=== PATIENT | female | born 1965 | race Caucasian/White ===

== ENCOUNTER 2016-10-01 08:54 | Day surgery (SDC) | payer OTHER ==
[~2016-10-01] VITALS: Ht 165.1 cm; Wt 77.3 kg
[~2016-10-01 08:54] MED LIST: AUGM500T7 PO; DILA2TAB2 PO; DILA4TAB2 PO; LISI10TA3 PO; LORA-373 PO; NITR50CA27 PO; PERC10TA27 PO; PROM25TA5 PO; REST15CA PO; ULTR50TA5 PO
[2016-10-01 09:10] VITALS: BP 180/93; PULSE 76; RESP 20; TEMP 97.9; O2SAT 100
[2016-10-01] MEDS ORDERED: SODIUM CHLORIDE 0.9% 1000 ML IV SCH (10:45)
[2016-10-01] MEDS ORDERED: MIDAZOLAM HCL 5 MG/5 ML VIAL ONE (11:09)
[2016-10-01] MEDS ORDERED: fentaNYL CITRATE 250 MCG/5 ML AMP ONE (11:09)
[2016-10-01] MEDS ORDERED: IOHEXOL 350 MG/ML 50 ML BTL (for RAD DIAG) ONE (11:30)
--- NOTE | 2016-10-01 11:39 | PD.RAD ---
Post Procedure Progress Note Pre Procedure Diagnosis: (1) Ureteral stricture, left Post Procedure Diagnosis: (1) Ureteral stricture, left Procedure Date: Oct 01, 2016 Supervising Radiologist: Kushal Frederick Proceduralist/Assist: Abel Norton RT(R), Smiley Yao RT(R) Anesthesia: Local, Conscious Sedation Plan of Activity Patient to Unit: ROPU Patient Condition: Good See PACS Report for procedural detail/treatment Drainage Procedure Procedure 1 Imaging Guidance: Fluoroscopy Side: Left Procedure Type: Nephrostomy Procedure: Replacement Greek: 10 Drainage: [place] drainage Fluid Description: Kushal Fuentes MD Oct 01, 2016 11:39
[2016-10-01 11:45] VITALS: BP 116/66; PULSE 70; RESP 17; TEMP 97.3; O2SAT 100
[2016-10-01 12:00] VITALS: BP 102/64; PULSE 70; RESP 18; O2SAT 100
[2016-10-01 12:30] VITALS: BP 112/64; PULSE 72; RESP 18; O2SAT 99
[2016-10-01 13:00] VITALS: BP 116/68; PULSE 76; RESP 19; O2SAT 100
--- NOTE | 2016-10-01 13:13 | RADRPT ---
EXAM DATE/TIME: 10/01/2016 11:04 [facility] COMPARISON: CHANGE OF NEPHROSTOMY CATH, LT, July 15, 2016, 10:37. INDICATIONS : Patient with history of ureteral stricture in need of nephrostomy tube exchange. MEDICAL HISTORY : COPD, Asthma, HLD, HTN, Kidney stones, Kidney disease, Pelvic inflammatory disease SURGICAL HISTORY : Colonoscopy, Hysterectomy, Appendectomy, Right nephrectomy, Cervical fusion, Oophorectomy ENCOUNTER: Subsequent ACUITY: >1 year PAIN SCORE: 0/10 FLUORO TIME: 1.4 minutes IMAGE SERIES: 1 SEDATION TIME: 10 minutes CONTRAST: 4 cc Omnipaque (iohexol) 350 MEDICATION(S): 1.) 2 mg midazolam (Versed) IV 2.) 200 mcg fentanyl (Sublimaze) IV DEVICE(S): 1.) 10 [place] X25cm nephrostomy catheter PROCEDURE : 1. Antegrade pyelogram. 2. Nephrostomy tube exchange. 3. Conscious sedation with continuous EKG and oximetry monitoring. The risks, benefits and alternatives to the procedure were explained and verbal and written consent w as obtained. The site was prepped in sterile fashion. Full sterile technique was used, including ca p, mask, sterile gloves and gown and a large sterile sheet. Hand hygiene and 2% chlorhexidine and/or betadine/alcohol prep was utilized per protocol for cutaneous antisepsis. The skin and subcutaneous tissues were infiltrated with local anesthetic solution. With fluoroscopic guidance antegrade pyelo gram was performed. The collecting system is not dilated. Over a guidewire the prescribed nephrostomy tube was placed. Injection of positive contrast demonstra jurgen good position of the catheter within the collecting system. Conscious sedation was performed with the prescribed dosages and duration as above in the presence of an independent trained radiology nurse to assist in the monitoring of the patient. EKG and oximetry remained stable throughout the procedure. The patient tolerated the procedure well and there were n o complications. The patient was sent to post anesthesia recovery in stable condition. CONCLUSION: Uncomplicated nephrostomy tube exchange as above. Kushal Frederick MD on October 01, 2016 at 13:10 Board Certified Radiologist. This report was verified electronically.
[2016-10-01] MEDS ORDERED: PILL SPLITTER OTHER PRN (13:30)
[2016-10-01] MEDS ORDERED: HYDROmorphone HCL 2 MG TAB PO ONE (13:30)
[2016-10-22] MEDS ORDERED: PRED10 PO (09:27)
[2016-10-25] MEDS ORDERED: PERC10TA27 PO (11:26)
[2016-10-25] MEDS ORDERED: CEPH-459 PO (11:26)
[2016-11-01] MEDS ORDERED: PHEN0.4T PO (15:29)
[2016-11-01] MEDS ORDERED: TAMS5CAP PO (15:29)
[2016-11-09] MEDS ORDERED: DILA4TAB2 PO (16:17)
[2016-11-15] MEDS ORDERED: BACT800T5 PO (16:26)
[2016-11-18] MEDS ORDERED: DILA4TAB2 PO (11:35)
[2016-11-18] MEDS ORDERED: AUGM500T7 PO (11:36)
[2016-12-09] MEDS ORDERED: DILA2TAB2 PO (09:14)
[2016-12-22] MEDS ORDERED: PROM25TA10 PO (14:03)
[2016-12-31] MEDS ORDERED: AUGM500T7 PO (12:18)
== END 2016-10-01 13:50 | disposition home or self-care (01) ==
LOC: HROP 08:54 → HRIP 09:00 → HROP 13:50
PROVIDERS: ATTEND Urology
DX: N13.5 Crossing vessel and stricture of ureter without hydronephrosis (principal); I10 Essential (primary) hypertension; E78.5 Hyperlipidemia, unspecified; J44.9 Chronic obstructive pulmonary disease, unspecified; J45.909 Unspecified asthma, uncomplicated; Z87.442 Personal history of urinary calculi; Z90.710 Acquired absence of both cervix and uterus
CPT/HCPCS: 50435; 99152; C1729; C1769; J2250; J3010; J7030; Q9967

== ENCOUNTER → 2016-10-25 | Day surgery (SDC) | payer OTHER ==
[~2016-10-25] VITALS: Ht 165.1 cm; Wt 89.9 kg
[~2016-10-25] MED LIST changes: +*morphine SULFATE 8 MG/ML PERIprocedure ONLY ONE; +BACT800T5 PO; +CEPH-459 PO; +CHLORHEXIDINE GLUCONATE 2 % 1 PACK (2 CLOTHS) TOPICAL PRN; +FAMOTIDINE 20 MG/2 ML VIAL ONE; +HYDROmorphone HCL PF 1 MG/ML VIAL IV PUSH PRN; +INSULIN HUMAN REGULAR 1,000 UNITS/10 ML VIAL SQ PRN; +IOHEXOL 350 MG/ML 10 ML VIAL (for RAD DIAG) ONE; +LACTATED RINGER'S 1000 ML IV PRN; +METOPROLOL TARTRATE 25 MG TAB PO PRN; +MIDAZOLAM HCL 2 MG/2 ML VIAL ONE; +ONDANSETRON HCL 4 MG/2 ML VIAL IV PUSH ONE; +ONDANSETRON HCL 4 MG/2 ML VIAL IV PUSH PRN; +PHEN0.4T PO; +PRED10 PO; +PROM25TA10 PO; +PROPOFOL 200 MG/20 ML AMP IV ONE; +SODIUM CHLORID 0.9% 500 ML IV PRN; +TAMS5CAP PO; -ULTR50TA5 PO; +ceFAZolin 1,000 MG/NS 100 ML IV SCH
[2016-10-25 07:28] VITALS: BP 131/72; PULSE 67; RESP 20; TEMP 97.8; O2SAT 96
[2016-10-25 08:25] LABS: AUTOMATED NEUTROPHIL # 8.7 TH/MM3 (1.8-7.7); BASOPHIL # 0.1 TH/MM3 (0-0.2); EOSINOPHIL % 0.3 % (0.0-4.0); HEMATOCRIT 38.4 % (35.0-46.0); HEMO FLAGS DIFF FINAL; LYMPH % 16.4 % (9.0-44.0); LYMPHOCYTE # 1.8 TH/MM3 (1.0-4.8); MEAN CELL VOLUME 93.2 FL (80.0-100.0); MEAN CORPUSCULAR HGB CONC 34.4 % (32.0-36.0); NEUT % 79.3 % (16.0-70.0); PLATELET COUNT 327 TH/MM3 (150-450); RED BLOOD COUNT 4.12 MIL/MM3 (4.00-5.30); RED CELL DISTRIBUTION WIDTH 13.9 % (11.6-17.2)
--- NOTE | 2016-10-25 11:35 | PD.OP ---
Operative Report Date of Surgery: Oct 25, 2016 Preoperative Diagnosis: (1) Ureteral obstruction, left Postoperative Diagnosis: (1) Ureteral obstruction, left (2) Ureteral stricture, left Procedure: Cystoscopy, left retrograde pyelogram, endoscopic incision left distal ureteral stricture with balloon dilation, left flexible ureteroscopy and left ureteral stent placement. Anesthesia: General Surgeon: Roni Sheets Wood Patternmaker(s): None Operation and Findings: Indication for procedure: Case of a pleasant 51-year-old female with a solitary left kidney and left ureteral obstruction who is status post distal left ureteral reconstruction and managed with a left nephrostomy tube who presents now for further evaluation to include cystoscopy, left much good pyelogram and possible left ureteroscopy. Procedure in detail: Patient was brought to the operating room suite and placed supine on the OR table. She was then placed under general anesthesia. She was then repositioned in the dorsolithotomy position and prepped and draped in normal sterile fashion. After an appropriate timeout was undertaken I proceeded with cystoscopic evaluation utilizing the rigid cystoscope with a 20 [place] sheath and 30 lens. The [place] ureteral orifice these were in correct anatomic position. The newly created left ureteral orifice was located high up on the patient's left side and was markedly stenotic. In fact I was barely able to cannulate the orifice with a 0.035 guidewire. The sensor 0.0355 guidewire was advanced up the patient's left ureter into the left kidney under fluoroscopy. A cone-tip ureteral catheter was back loaded and utilized to perform a retrograde pyelogram with the guidewire removed. There was dilation of the entire ureter noted down to the very distal aspect. The guidewire was reintroduced and was again advanced up into the left kidney and the cystoscope was removed. The guidewire was secured to a sterile drape with a hemostat. The visual internal urethrotome device was then passed alongside the previously past guidewire and an endoscopic incision was made of the stenotic ureteral orifice by cutting at the 12 o'clock position. Once the office was opened the direct visual internal urethrotome was removed and the cystoscope was reintroduced with the wire backloaded through this device. Next the 18 [place] ureteral balloon dilatation catheter was advanced through the cystoscope and up to wire to the very distal left ureter and this area was then balloon dilated to 20 susan of pressure. The balloon was next deflated and the device withdrawn. I then utilized the flexible ureteroscope and was easily able to advance the scope up the entire left ureter up to the point of seeing the inside of the left kidney and the coil of the left nephrostomy tube. There were no other stenotic areas of urine noted nor were there any tumors or calculi. The flexible ureteroscope was next withdrawn and the cystoscope reintroduced and once again the wire was backloaded through the scope. A 6 [place]uran 24 cm [place] intermediate accountant stent was next passed up the patient's left ureter under both cystoscopic and fluoroscopic guidance without difficulty and once the stent was in proper position the trailing string was removed. An 18 [place] 10 cc Saini catheter was next placed and connected to gravity drainage. The patient tolerated the procedures without occasions and was transferred to the PACU in satisfactory condition. Roni Sheets MD Oct 25, 2016 11:35
[2016-10-25 14:00] VITALS: BP 120/64; PULSE 80; RESP 16; TEMP 97.6; O2SAT 99
--- NOTE | 2016-10-25 14:01 | EKG ---
Date Performed: 10/25/2016 Time Performed: 08:19:23 PTAGE: 51 years EKG: Sinus rhythm LOW QRS VOLTAGE IN PRECORDIAL LEADS ST DEVIATION AND MODERATE T-WAVE ABNORMALITY, CONSIDER ANTEROLAT ERAL ISCHEMIA ABNORMAL ECG NO PREVIOUS TRACING DOCTOR: Jeimy Velez Interpretating Date/Time 10/25/2016 13:59:19
== END | disposition home or self-care (01) ==
LOC: HSDC 07:17
PROVIDERS: ATTEND Urology
DX: N13.5 Crossing vessel and stricture of ureter without hydronephrosis (principal); I10 Essential (primary) hypertension; E78.5 Hyperlipidemia, unspecified; J44.9 Chronic obstructive pulmonary disease, unspecified; J45.909 Unspecified asthma, uncomplicated
CPT/HCPCS: 00910; 52332; 52341; 74420; 85025; 93005; C1726; C1769; J0690; J2250; J2270; J2405; J3010; J7120; Q9967

== ENCOUNTER 2016-12-27 07:27 | Day surgery (SDC) | payer OTHER ==
[~2016-12-27] VITALS: Ht 165.1 cm; Wt 88.5 kg
[~2016-12-27 07:27] MED LIST changes: -*morphine SULFATE 8 MG/ML PERIprocedure ONLY ONE; -AUGM500T7 PO; -BACT800T5 PO; -CEPH-459 PO; -CHLORHEXIDINE GLUCONATE 2 % 1 PACK (2 CLOTHS) TOPICAL PRN; -DILA4TAB2 PO; -FAMOTIDINE 20 MG/2 ML VIAL ONE; -HYDROmorphone HCL PF 1 MG/ML VIAL IV PUSH PRN; -INSULIN HUMAN REGULAR 1,000 UNITS/10 ML VIAL SQ PRN; -IOHEXOL 350 MG/ML 10 ML VIAL (for RAD DIAG) ONE; -LACTATED RINGER'S 1000 ML IV PRN; -METOPROLOL TARTRATE 25 MG TAB PO PRN; -MIDAZOLAM HCL 2 MG/2 ML VIAL ONE; -NITR50CA27 PO; -ONDANSETRON HCL 4 MG/2 ML VIAL IV PUSH ONE; -ONDANSETRON HCL 4 MG/2 ML VIAL IV PUSH PRN; -PERC10TA27 PO; -PRED10 PO; -PROM25TA5 PO; -PROPOFOL 200 MG/20 ML AMP IV ONE; -SODIUM CHLORID 0.9% 500 ML IV PRN; -ceFAZolin 1,000 MG/NS 100 ML IV SCH
[2016-12-27 07:54] VITALS: BP 169/90; PULSE 84; RESP 20; TEMP 98.1; O2SAT 94
[2016-12-27 07:59] VITALS: BP 154/85; PULSE 82; RESP 20; O2SAT 95
[2016-12-27] MEDS ORDERED: SODIUM CHLORIDE 0.9% 1000 ML IV SCH (08:00)
[2016-12-27 08:17] VITALS: BP 130/85; PULSE 76; RESP 22; O2SAT 94
[2016-12-27] MEDS ORDERED: diphenhydrAMINE HCL 50 MG CAP PO ONE (09:00)
[2016-12-27 10:35] VITALS: BP 129/79; PULSE 74; RESP 18; TEMP 98.4; O2SAT 93
[2016-12-27] MEDS ORDERED: IOHEXOL 350 MG/ML 50 ML BTL (for RAD DIAG) ONE (10:51)
--- NOTE | 2016-12-27 11:10 | PD.RAD ---
Post Procedure Progress Note Pre Procedure Diagnosis: (1) Ureteral stricture, left Post Procedure Diagnosis: (1) Ureteral stricture, left Procedure Date: Dec 27, 2016 Supervising Radiologist: Magno Echevarria Proceduralist/Assist: RT Kain(R)() Anesthesia: Other Plan of Activity Patient to Unit: ROPU Patient Condition: Good Additional Comments: Antegrade nephrostogram - patent ureter with brisk flow to bladder See PACS Report for procedural detail/treatment Magno Echevarria MD Dec 27, 2016 11:10
--- NOTE | 2016-12-27 11:21 | RADRPT ---
EXAM DATE/TIME: 12/27/2016 10:22 [facility] COMPARISON: ANTEGRADE PYELOGRAM, LEFT, October 01, 2016, 0:00. INDICATIONS : Patient with history of ureteral stricture. Patient is status post ureterostomy with ureteral stent p lacement. Nephrostomy catheter has been capped for approximately 4 weeks. Patient was reluctant to hardy ve the catheter removed secondary to prolonged course of illness. She now has positive blood cultures and catheter removal has been requested. MEDICAL HISTORY : 1.COPD 2. Asthma 3. HLD 4. HTN 5. kidney stones 6. pelvic inflammatory disease SURGICAL HISTORY : 1. right neph 2. colonoscopy 3.hysterectomy 4.cervical fusion 5. right nephrectomy ENCOUNTER: Subsequent ACUITY: >1 year PAIN SCORE: 0/10 FLUORO TIME: 0.8 minutes IMAGE SERIES: 2 CONTRAST: 5 cc Omnipaque (iohexol) 350 Patient was premedicated per protocol for underlying contrast media allergy. PROCEDURE : 1. Antegrade pyelogram. The risks, benefits and alternatives to the procedure were explained and verbal and written consent w as obtained. Under sterile conditions and using aseptic technique with fluoroscopic guidance the pat ient's existing nephroureteral tube was accessed. Existing left rectus nephrostomy catheter was prepped and draped usual sterile fashion. Fluoroscopic evaluation demonstrated a catheter to be in good position. Approximately 10 cc of dilute contrast was then injected through the catheter. Fluoroscopic evaluation was then performed. This demonstrated a well positioned nephrostomy catheter with nondistended left renal collecting system. Contrast flows f reely into the bladder with only minor delay in contrast clearance in the distal ureter. Therefore, t he catheter was cut externally and removed. Dressing was applied to the nephrostomy site. CONCLUSION: 1. Well-positioned left-sided nephrostomy catheter. 2. Nondistended left renal collecting system with only minor delayed clearance of contrast near the d istal ureter. There is complete clearance of contrast in less than 2 minutes. Magno Echevarria MD on December 27, 2016 at 11:14 Board Certified Radiologist. This report was verified electronically.
[2016-12-31] MEDS ORDERED: AUGM500T7 PO (12:18)
== END 2016-12-27 11:10 | disposition home or self-care (01) ==
LOC: HROP 07:27 → HRIP 07:31 → HROP 11:10
PROVIDERS: ATTEND Urology
DX: N13.5 Crossing vessel and stricture of ureter without hydronephrosis (principal); I10 Essential (primary) hypertension; E78.5 Hyperlipidemia, unspecified; J44.9 Chronic obstructive pulmonary disease, unspecified; Z87.442 Personal history of urinary calculi; Z90.5 Acquired absence of kidney; Z98.1 Arthrodesis status
CPT/HCPCS: 50431; J7030; Q0163; Q9967